=== PATIENT | female | born 1970 | race Caucasian/White ===

== ENCOUNTER 2018-02-08 08:35 | Inpatient (IN) | payer BC ==
[~2018-02-08] VITALS: Ht 157.5 cm; Wt 58.5 kg
[2018-02-08 08:54] LABS: HCG,QUAL RESULT NEGATIVE (NEGATIVE)
[2018-02-08] MEDS ORDERED: CEFAZOLIN SOD 1 GM in D5W 50 ML IV ONE (09:15)
[2018-02-08] MEDS ORDERED: LR 1,000 ML IV SCH (11:00)
[2018-02-08] MEDS ORDERED: METOCLOPRAMIDE HCL 10 MG/2 ML VIAL IVP PRN (11:00)
[2018-02-08] MEDS ORDERED: MORPHINE 4 MG/ML INJ. SYRINGE IVP PRN ×3 (11:00)
[2018-02-08] MEDS ORDERED: OXYCODONE/ACETAMINOPHEN 5-325 TABLET PO PRN (12:30)
[2018-02-08] MEDS: LR 1,000 ML IV SCH ×3 (12:35→21:11)
[2018-02-08] MEDS ORDERED: MORPHINE SULFATE 10MG/10ML PF AMP EP ONE (12:55)
[2018-02-08] MEDS ORDERED: LR 1,000 ML IV.SOLN IV ONE (12:55)
[2018-02-08] MEDS ORDERED: KETOROLAC TROMETHAMINE 30 MG VIAL IVP ONE (12:55)
[2018-02-08] MEDS ORDERED: SEVOFLURANE 15 MIN GAS INH ONE (12:55)
[2018-02-08] MEDS ORDERED: NS IRRIG SOLN 1000 ML IR ONE (12:55)
[2018-02-08] MEDS ORDERED: ROCURONIUM BROMIDE 10 MG/ML (ZEMURON) IV ONE (12:55)
[2018-02-08] MEDS ORDERED: fentaNYL CITRATE 250 MCG/5 ML AMP IV ONE (12:55)
[2018-02-08] MEDS ORDERED: PROPOFOL 200MG/ 20ML VIAL (DIPRIVAN) IV ONE (12:55)
[2018-02-08] MEDS ORDERED: ONDANSETRON HCL 4 MG/2 ML VIAL IVP ONE (12:55)
[2018-02-08] MEDS ORDERED: MIDAZOLAM HCL 5 MG/ML VIAL (VERSED) IV ONE (12:55)
[2018-02-08 13:58] VITALS: BP_SYST 87
[2018-02-08] MEDS: CEFAZOLIN 1 GM IVPB PREMIX 50 ML IV SCH ×2 (14:46→21:11)
[2018-02-08] MEDS: SIMETHICONE 80 MG TAB.CHEW PO SCH ×2 (18:15→21:11)
[2018-02-08 20:00] VITALS: BP_SYST 108
[2018-02-08] MEDS ORDERED: ZOLPIDEM TARTRATE 5 MG TABLET PO PRN (21:00)
[2018-02-08] MEDS ORDERED: SENNOSIDES/DOCUSATE SODIUM 1 TAB TABLET(SENOKOT-S) PO PRN (21:00)
[2018-02-09] VITALS: BP_SYST 103
[2018-02-09] MEDS: OXYCODONE/ACETAMINOPHEN 5-325 TABLET PO PRN ×3 (00:06→08:06)
[2018-02-09] MEDS: LR 1,000 ML IV SCH ×3 (04:46→23:49)
[2018-02-09 05:38] LABS: BASOPHILS % (AUTO) 0.1 % (0.0-2.0); HEMATOCRIT 25.5 % (36-48); HEMOGLOBIN 8.2 g/dL (12.0-16.0); LYMPHOCYTES # (AUTO) 0.7 K/uL (1.0-5.5); LYMPHOCYTES % (AUTO) 8.8 % (20.5-51.5); MEAN CORPUSCULAR HEMOGLOBIN 26 pg (27-31); MEAN CORPUSCULAR HGB CONC 32 % (32-36); MEAN CORPUSCULAR VOLUME 81 fL (79.0-98.0); MONOCYTES # (AUTO) 0.6 K/uL (0.0-1.0); NEUTROPHILS # (AUTO) 6.8 K/uL (1.8-7.7); NEUTROPHILS % (AUTO) 83.1 % (40.0-70.0); PLATELET COUNT (AUTO) 188 K/uL (130-430); RED BLOOD CELL COUNT(AUTO) 3.17 MIL/uL (4.2-6.2); RED CELL DISTRIBUTION WIDTH 14.1 % (9.0-15.0); WHITE BLOOD COUNT (AUTO) 8.1 K/uL (4.8-10.8)
[2018-02-09 08:10] VITALS: BP_SYST 95
[2018-02-09] MEDS: SIMETHICONE 80 MG TAB.CHEW PO SCH ×4 (09:06→21:17)
[2018-02-09 11:50] VITALS: BP_SYST 94
[2018-02-09] MEDS: KETOROLAC TROMETHAMINE 30 MG VIAL IVP SCH ×3 (12:03→23:50)
[2018-02-09 16:52] VITALS: BP_SYST 97
[2018-02-09 21:03] VITALS: BP_SYST 113
[2018-02-10 00:19] VITALS: BP_SYST 114
[2018-02-10] MEDS: OXYCODONE/ACETAMINOPHEN 5-325 TABLET PO PRN (05:40)
[2018-02-10] MEDS: KETOROLAC TROMETHAMINE 30 MG VIAL IVP SCH ×3 (05:41→17:02)
[2018-02-10] MEDS: LR 1,000 ML IV SCH ×2 (05:41→13:19)
[2018-02-10 08:00] VITALS: BP_SYST 109
[2018-02-10] MEDS: SIMETHICONE 80 MG TAB.CHEW PO SCH ×3 (09:21→17:02)
[2018-02-10 12:40] VITALS: BP_SYST 124
[2018-02-10 16:00] VITALS: BP_SYST 108
[2018-02-10 17:59] VITALS: BP_SYST 108
[2018-02-10 18:16] VITALS: BP_SYST 108
== END 2018-02-10 18:26 | disposition home or self-care (01) | DRG 743 ==
LOC: SMU 08:35 → SDS 08:35 → SMU 21:20 → SDS 22:00 → SMU 02-09 23:57 → SDS 02-10 18:26 → SMU 02-10 18:26
PROVIDERS: ADMIT Specialist; ATTEND Specialist
PROC: 0UT60ZZ Resection of Left Fallopian Tube, Open Approach (ICD-10-PCS; principal; 2018-02-09)
PROC: 0DTJ0ZZ Resection of Appendix, Open Approach (ICD-10-PCS; 2018-02-09)
PROC: 0UT10ZZ Resection of Left Ovary, Open Approach (ICD-10-PCS; 2018-02-09)
PROC: 0UT90ZZ Resection of Uterus, Open Approach (ICD-10-PCS; 2018-02-09)
DX: N73.6 Female pelvic peritoneal adhesions (postinfective) (principal); N80.1 Endometriosis of ovary; R19.00 Intra-abdominal and pelvic swelling, mass and lump, unspecified site; N83.9 Noninflammatory disorder of ovary, fallopian tube and broad ligament, unspecified; N92.6 Irregular menstruation, unspecified
CPT/HCPCS: 36415; 71045; 84703; 85025; 87081; 88108; 88305; 88307; 93005; J0690; J1885; J2250; J2274; J2405; J2704; J3010; J7060; J7120